=== PATIENT | female | born 1995 | race Caucasian/White ===

== ENCOUNTER 2018-03-29 17:13 | Emergency (ER) | payer OTHER ==
[~2018-03-29 17:13] MED LIST: Iopamidol 370 76% 100 ML VIAL ONE
[2018-03-29] MEDS ORDERED: Fentanyl 100 MCG/2 ML VIAL ONE ×2 (17:28→19:35)
[2018-03-29] MEDS ORDERED: Sodium Chloride 0.9% 1,000 ML ONE (17:28)
[2018-03-29] MEDS ORDERED: Ondansetron HCl/PF 4 MG/2 ML Vial ONE (17:28)
[2018-03-29 17:36] LABS: Bilirubin Negative (Negative); Blood, Urine Negative (Negative); Glucose, Urine (Dipstick) Negative (Negative); Leukocyte Moderate (Negative); Nitrite Negative (Negative); Protein, Urine (Dipstick) Negative (Neg-Trace); Urobilinogen 0.2 mg/dL (0.2-1.0)
[2018-03-29 17:46] LABS: #Basophils 0.1 thou/uL (0.0-0.2); #Eosinphils 0.2 thou/uL (0.0-0.7); #Lymphocytes 2.2 thou/uL (1.20-3.40); #Monocytes 0.4 thou/uL (0.11-0.59); #Neutrophils 4.1 thou/uL (1.40-6.50); %Basophils 1.4 % (0.0-1.0); %Eosinophils 3.3 % (0.0-10.0); %Lymphocytes 31.5 % (28.0-48.0); %Neutrophils 57.9 % (31.0-61.0); Hemoglobin 13.5 g/dL (12.0-16.0); Mean Corpuscular HGB CONC 32.5 g/dL (32.0-36.0); Mean Corpuscular Hemoglobin 27.4 pg (25.0-35.0); Mean Corpuscular Volume 84.2 fl (77.0-87.0); Mean Platelet Volume 8.6 fL (7.4-10.4); Platelet Count 176 thou/uL (130-400); RBC Distribution Width 11.8 % (11.5-14.5); Red Blood Cell (RBC) Count 4.92 mill/uL (4.00-5.20); White Blood Cell (WBC) Count 7.1 thou/uL (4.8-10.8)
[2018-03-29 17:48] LABS: Bacteria/HPF 3+ HPF (None Seen); Clarity Hazy (Clear); Squamous Epithelial 0-3 HPF (0-3)
[2018-03-29 17:49] LABS: Pregnancy Test - Urine (BHCG) Negative (Negative); Pregu Control Background? CLEAR/WHITE (CLR/WHITE); Pregu Control Bar Appear? YES (CONTROL BAR)
[2018-03-29 18:00] LABS: ALT (SGPT) 14 U/L (8-55); AST (SGOT) 19 U/L (5-34); Albumin 4.3 g/dL (3.5-5.0); Alkaline Phosphatase 61 U/L (40-150); Anion Gap 13 mmol/L (10-20); BUN (Urea Nitrogen) 12 mg/dL (7.0-18.7); Bilirubin, Total 0.4 mg/dL (0.2-1.2); Calc. Creatinine Clearance 0 mL/min (70-130); Calcium 9.2 mg/dL (7.8-10.44); Carbon Dioxide 21 mmol/L (22-29); Chloride 107 mmol/L (98-107); Estimated GFR-MDRD 85; Globulin 2.5 g/dL (2.4-3.5); Glucose 88 mg/dL (70-105); Potassium 3.4 mmol/L (3.5-5.1); Protein, Total 6.8 g/dL (6.0-8.3); Sodium 138 mmol/L (136-145)
[2018-03-29] MEDS ORDERED: Cipro 250 MG TAB ONE (20:33)
[2018-03-29] MEDS ORDERED: metroNIDAZOLE 500 MG TAB ONE (20:33)
--- NOTE | 2018-03-29 22:01 | CT ---
CT ABDOMEN AND PELVIS WITH CONTRAST: History: Abdominal pain. Comparison: None. FINDINGS: Lung bases are clear. No pericardial effusion. The appendix is felt to be visualized and is normal. There is abnormal mucosal edema and lack of normal haustrations of the descending colon and portions of the sigmoid colon. The liver and gallbladder are seen and unremarkable. Pancreas is unremarkable. Aortoiliac contour is normal. No free fluid. No skeletal abnormality is appreciated. No hydronephrosis. IMPRESSION: 1. Normal appendix. 2. Mild submucosal edema, low grade dilatation and lack of normal haustrations of the descending colo n and portions of the sigmoid colon can be seen with colitis or inflammatory bowel disease. Nonemerge nt GI follow up recommended. POS: [id number]
== END 2018-03-29 20:45 | disposition home or self-care (01) ==
LOC: NAV ERS 17:13
DX: K52.9 Noninfective gastroenteritis and colitis, unspecified (principal)
CPT/HCPCS: 74177; 80053; 81003; 81015; 81025; 85025; 96361; 96374; 96375; 96376; J2405; J3010; J7050